=== PATIENT | male | born 1980 ===

== ENCOUNTER 2017-12-10 01:21 | Day surgery (SDC) | payer OTHER ==
[~2017-12-10] VITALS: Ht 185.4 cm; Wt 87.5 kg
[~2017-12-10 01:21] MED LIST: MELO-207 PO; MULT1CAP59 PO; SERT-184 PO
[2017-12-10 05:49] VITALS: BP 116/76
[2017-12-10] MEDS ORDERED: ceFAZolin(*) 2GM/D5W 50ML 50 ML IVPB ONE (06:15)
[2017-12-10] MEDS ORDERED: LIDOCAINE/SOD BICARB 8.4% SYR ID ONE (06:15)
[2017-12-10] MEDS ORDERED: FAMOTIDINE 20 MG TAB PO ONE (06:15)
[2017-12-10] MEDS ORDERED: NORMOSOL R SOLN(*) 1000 ML BAG 1,000 ML IV PRN (06:15)
[2017-12-10] MEDS ORDERED: CELECOXIB 200 MG CAP PO ONE (06:15)
[2017-12-10] MEDS ORDERED: MIDAZOLAM 2 MG/2 ML VIAL IVP PRN (06:15)
[2017-12-10] MEDS ORDERED: LIDOCAINE MPF 1% 5 ML VIAL ONE (06:55)
[2017-12-10] MEDS ORDERED: ONDANSETRON 4 MG/2 ML VIAL ONE (06:55)
[2017-12-10] MEDS ORDERED: DEXAMETHASONE SOD PHOS 10MG/ML ONE (06:55)
[2017-12-10] MEDS ORDERED: PROPOFOL EMUL(*) 10MG/ML 20 ML 20 ML ONE (06:55)
[2017-12-10] MEDS ORDERED: fentaNYL CITR 100 MCG/2 ML AMP ONE (06:55)
[2017-12-10] MEDS ORDERED: EPINEPHrine HCL 1 MG/ML AMP ONE (06:59)
[2017-12-10] MEDS ORDERED: SUGAMMADEX SOD 200 MG/2 ML SDV ONE (07:30)
[2017-12-10] MEDS ORDERED: ROCURONIUM BROM 10 MG/ML 10 ML ONE (07:30)
[2017-12-10] MEDS ORDERED: KET10 PO (09:09)
[2017-12-10] MEDS ORDERED: OXY IR PO (09:11)
[2017-12-10 10:15] VITALS: BP 122/75
[2017-12-10 10:42] VITALS: BP 127/85
[2017-12-10 10:48] VITALS: BP 127/82
[2017-12-10 10:50] VITALS: BP 125/89
--- NOTE | 2017-12-10 16:10 | OPERATIVE REPORT 1 ---
EVENT DATE: December 10, 2017 SURGEON: Mir Leija MD ANESTHESIOLOGIST: Yoel Potts MD ANESTHESIA: Right interscalene block followed by general. OFFAL TRIMMER: Kike Rogers PA-C PREOPERATIVE DIAGNOSIS Right shoulder impingement syndrome with high-grade partial thickness tear of the anterior portion of the supraspinatus. POSTOPERATIVE DIAGNOSIS 1. Right shoulder impingement syndrome with high-grade partial thickness tear of the anterior portion of the supraspinatus. 2. Grade 1 superior labrum anterior and posterior (SLAP) tear and anterior labral degenerative tearing. PROCEDURE PERFORMED Right shoulder arthroscopy with debridement of SLAP grade 1, debridement of anterior labral degenerative tearing, debridement of rotator cuff tear followed by all inside repair and subacromial decompression. IMPLANTS One Biomet 2.9 mm JuggerKnot suture anchor and two [place]em Quattro 4.5 mm Footprint anchors. SPECIMENS None. COMPLICATIONS None. ESTIMATED BLOOD LOSS Less than 5 mL. OPERATION Patient received appropriate preoperative antibiotic, was brought to the OR, where Dr. Potts performed right interscalene block followed by general anesthesia. The patient was then placed in the left lateral decubitus position , right shoulder up, appropriate padding and positioners. Right shoulder was then prepped and draped in the usual sterile fashion and placed in 12 pounds of traction. Through a posterior approach, we injected the joint with arthroscopic fluid and established our posterior portal, and through an outside in technique, the anterior portal. Subscap was intact. We noted the biceps to be grossly intact, but there was an anterior tear of the supraspinatus. There was no further damage in the infraspinatus or teres minor. There were no loose bodies in the axillary pouch. Drive-through sign was negative. Biceps anchor showed some tearing of the articular cartilage and biceps, but this was SLAP grade 1. The anchors were grossly intact. Anterior to this between one and three o'clock, there was tearing of the labrum. This was debrided. SLAP and this labrum was debrided down to a stable base with a shaver. The remaining articular cartilage on the humeral head and glenoid as well as labrum was grossly intact. Shaver was utilized to debride the cuff tear, and this appeared to be high grade, involving greater than 75% of the depth. We marked this with a PDS suture, and then we placed a scope from the posterior portal into the subacromial space, and under needle localization established our lateral portal. There was generalized hyperemia and a mild bursal reaction that was partially debrided with a shaver after visualization. There was significant abrasion and tearing of the CA ligament indicating impingement. We probed the cuff bluntly and noted that the teres minor and infraspinatus were grossly intact, but as we came to the area of interest, we plunged in, indicating a high-grade tear. This was easily converted to a full thickness tear. PDS suture was removed. We debrided the tear down to a stable base with the shaver. We debrided the footprint with shaver and bur down to the cancellous bone. We then released the CA ligament with the Serfas device and removed the anterior undersurface third of the soft tissue of the acromion with our Sesrfas device. We noted significant anterior spur. We then placed our larger cannula laterally and [place] cannula anteriorly. We then placed our anchor , 2.9 mm JuggerKnot, centrally in the footprint. These sutures were passed anteriorly. We then passed these one by one through the lateral portal, and with care taken not to incorporate the biceps tendon, we passed these four sutures one by one from anterior to posterior, covering our cuff tear evenly, spacing these out 5-7 mm. We then tied these sutures arthroscopically from posterior to anterior, and this brought our cuff into the footprint in satisfactory fashion. We then took one of the sutures from each of the knots and established our [place] Quattro 4.5 mm anchor anteriorly in the footprint laterally in the greater tuberosity in standard fashion. Second anchor was placed in the posterior aspect of the footprint laterally in the greater tuberosity, creating a cross-bridging two row technique with good fixation. We then performed FREIDA starting 5 mm anteriorly, beveling to the junction of the anterior middle third in a 90-90 technique. Instrumentation was removed. Portals were closed subcutaneously with 4-0 Monocryl followed by Steri-Strips, injection of portals and the subacromial space with ropivacaine, followed by compressive dressing. Patient was extubated, taken to recovery in stable condition. He will have a Iceman and Cryocup. Dressings can be left until we see him in our clinic this Sunday. He was recommended Tylenol for 24-48 hours scheduled 1000 mg every 8 hours, Toradol 10 mg p.o. q.8 hours p.r.n. and OxyIR 25 mg 1-2 p.o. q.4 hours for pain, #20. MTDD
== END 2017-12-10 10:16 | disposition home or self-care (01) ==
LOC: OR 01:21
PROVIDERS: ATTEND Orthopaedic Surgery
DX: M75.41 Impingement syndrome of right shoulder (principal); S43.431A Superior glenoid labrum lesion of right shoulder, initial encounter
CPT/HCPCS: 29807; J0171; J1100; J2001; J2405; J2704; J3010; A4565; C1713; J0690